=== PATIENT | female | born 1960 | race Two or more races ===

== ENCOUNTER 2022-05-16 04:04 | Day surgery (SDC) | payer OTHER ==
[2022-05-11 10:55] VITALS: BMI 25.0
[2022-05-16 06:28] VITALS: RESP 20
[2022-05-16] MEDS ORDERED: PROPOFOL 80 ML ONE (07:31)
[2022-05-16] MEDS ORDERED: MIDAZOLAM HCL 2 MG/2 ML SINGLE DOSE VIAL ONE (07:31)
[2022-05-16] MEDS ORDERED: SUCCINYLCHOLINE CHLORIDE 200 MG/10 ML SYRINGE ONE (07:34)
[2022-05-16 10:00] VITALS: BP 112/52; PULSE 58; TEMP 97.2
== END 2022-05-16 10:20 | disposition home or self-care (01) ==
LOC: JASU-SURG 04:04
PROVIDERS: ATTEND Urology
PROC: 0TF4XZZ Fragmentation in Left Kidney Pelvis, External Approach (ICD-10-PCS; principal; 2022-05-16 08:00)
DX: N20.0 Calculus of kidney (principal)